=== PATIENT | male | born 1990 | race Hispanic/Latino ===

== ENCOUNTER 2018-09-22 17:21 | Inpatient (IN) | payer MEDICAID ==
[2018-09-22 17:45] VITALS: BMI 33.4
--- NOTE | 2018-09-22 18:20 | C.PDOC ---
History Of Present Illness 28 y/o male presents to the ER requesting detox from heroin. Patient states that his last use was yesterday. Patient reports he has not tried detox for the past few years. Denies having suicidal ideation, homicidal ideation, and active physical complaints. Of note, patient is prescreened. Time Seen by Provider: 09/22/18 17:37 Chief Complaint (Nursing): Substance Abuse History Per: Patient History/Exam Limitations: no limitations Past Medical History Reviewed: Historical Data, Nursing Documentation, Vital Signs Vital Signs: Last Vital Signs Temp 98.3 F 09/22/18 17:44 Pulse 94 H 09/22/18 17:44 Resp 18 09/22/18 17:44 BP 128/87 09/22/18 17:44 Pulse Ox 97 09/22/18 17:44 - Medical History PMH: Anxiety, Asthma Denies: Bipolar Disorder, Depression, Diabetes, Hepatitis, HIV, HTN, Paranoia, Post Traumatic Stress Disorder, Chronic Kidney Disease, Schizophrenia, Seizures, Sexually Transmitted Disease Surgical History: Appendectomy - [facility] Procedures APPLICATION OF SPLINT (04/05/06) IMMOBILIZ/WOUND ATTN NEC (03/25/13) ING HERNIA REP-GRAFT NOS (04/06/07) INJECT/INFUSE ELECTROLYT (02/28/15) INJECT/INFUSE NEC (02/28/15) NEBULIZER THERAPY (12/31/06) OTHER APPENDECTOMY (08/04/05) PSYCHIA INTERV/EVAL NEC (09/28/13) Family History: States: No Known Family Hx - Social History Hx Tobacco Use: Yes Hx Alcohol Use: Yes Hx Substance Use: Yes - Immunization History Hx Tetanus Toxoid Vaccination: No Hx Influenza Vaccination: No Hx Pneumococcal Vaccination: No Review Of Systems Constitutional: Negative for: Fever, Chills Psych: Negative for: Suicidal ideation Physical Exam - Physical Exam Appears: No Acute Distress Skin: Normal Color, Warm, Dry Head: Atraumatic, Normacephalic Eye(s): bilateral: Normal Inspection Nose: Normal Oral Mucosa: Moist Neck: Supple Chest: Symmetrical Cardiovascular: Rhythm Regular Respiratory: Normal Breath Sounds, No Rales, No Rhonchi, No Wheezing Gastrointestinal/Abdominal: Normal Exam, Soft, No Tenderness, No Guarding, No Rebound Neurological/Psych: Oriented x3, Normal Speech ED Course And Treatment - Laboratory Results Result Diagrams: 09/22/18 18:16 09/22/18 18:16 Lab Interpretation: No Acute Changes (UDS positive for opiates and marijuana) O2 Sat by Pulse Oximetry: 97 (RA) Pulse Ox Interpretation: Normal Progress Note: Patient is medically cleared for detox admission. Medical Decision Making Medical Decision Making: Plan: --Labs --UA Disposition - Disposition Disposition: HOSPITALIZED Disposition Time: 19:50 Condition: STABLE - POA Present On Arrival: None - Clinical Impression Clinical Impression: Opiate dependence - Scribe Statement The provider has reviewed the documentation as recorded by the Heatheribbessie Abbott Provider Attestation: All medical record entries made by the Scribe were at my direction and personally dictated by me. I have reviewed the chart and agree that the record accurately reflects my personal performance of the history, physical exam, medical decision making, and the department course for this patient. I have also personally directed, reviewed, and agree with the discharge instructions and disposition.
[2018-09-22 18:22] LABS: BASO # 0.1 K/uL (0.0-0.2); EOS # 0.2 K/uL (0.0-0.7); EOS % 1.4 % (0.0-4.0); HEMOGLOBIN 16.1 g/dL (12.0-18.0); MEAN CELL VOLUME 89.5 fL (80.0-94.0); MEAN CORPUSCULAR HEMOGLOBIN 30.1 pg (27.0-31.0); MEAN CORPUSCULAR HGB CONC 33.6 g/dL (33.0-37.0); MEAN PLATELET VOLUME 8.8 fL (7.2-11.7); MONO # 0.7 K/uL (0.0-0.8); MONO % 5.2 % (0.0-10.0); NEUT # 9.7 K/uL (1.8-7.0); NEUT % 76.4 % (50.0-75.0); RBC 5.34 Mil/uL (4.40-5.90); RED CELL DISTRIBUTION WIDTH 13.6 % (11.5-14.5); WHITE BLOOD COUNT 12.7 K/uL (4.8-10.8)
[2018-09-22 18:36] LABS: ALB/GLOB RATIO 1.5 (1.0-2.1); ALBUMIN 4.9 g/dL (3.5-5.0); ALT/SGPT 13 U/L (21-72); AST/SGOT 26 U/L (17-59); BLOOD UREA NITROGEN 10 mg/dL (9-20); CALCIUM 10.1 mg/dl (8.6-10.4); GFR NON-AFRICAN AMERICAN > 60
[2018-09-22 19:00] LABS: URINE BILIRUBIN NEGATIVE (NEGATIVE); URINE BLOOD NEGATIVE (NEGATIVE); URINE CLARITY Clear (Clear); URINE COLOR Yellow (YELLOW); URINE GLUCOSE (UA) NORMAL (Normal); URINE LEUKOCYTE ESTERASE NEG Leu/uL (Negative); URINE PROTEIN NEGATIVE (NEGATIVE); URINE UROBILINOGEN NORMAL mg/dL (0.2-1.0)
[2018-09-22 19:14] LABS: BARBITURATES, UR NEGATIVE (NEGATIVE); BENZODIAZEPINES, UR NEGATIVE (NEGATIVE); PHENCYCLIDINE, UR NEGATIVE (NEGATIVE)
[2018-09-22 19:16] LABS: OPIATES, UR POSITIVE (NEGATIVE)
--- NOTE | 2018-09-22 20:11 | PCM.BM ---
<Adan Vanegas - Last Filed: 09/22/18 20:08> Treatment Plan Problems - Problems identified on initial assessmt denial Date Initiated: 09/22/18 Time Initiated: 20:09 Assessment reference: NA Status: Active defensive coping Date Initiated: 09/22/18 Time Initiated: 20:10 Assessment reference: NA Status: Active chronic low self esteem Date Initiated: 09/22/18 Time Initiated: 20:10 Assessment reference: NA Status: Active Treatment assets and liabiliti Patient Assests: adapts well, cooperative, ADL independent Patient Liabilities: substance abuse - Milieu Protocol Maintain good personal hygiene: daily Encourage regular showers, daily Remind patient to perform daily oral care, daily Assist patient to perform ADL's Conduct patient checks and document Observation sheet: Q15 minutes Maintain personal safety: every shift Educate patient to report safety concerns to staff, every shift Monitor environment for contraband/sharps Medication safety: Monitor for expected outcome, potential side effects: every shift, Assess barriers to learning: every shift, Assess readiness for medication education: every shift <Tiffanie Adhikari - Last Filed: 09/24/18 16:03> Family Contact Family involvement: Family/SO is involved Family contact name: mom Family contacted how many times per week?: 3 - Goals for Treatment Patient goals for treatment: Complete detox and apply for short-term rehab. Discharge/Continuing Care - Education Needs Education Needs: Patient Medication, Patient Diagnosis/Disease Process, Patient Coping Skills, Patient Anger Management skills, Patient Placement options, Patient Community resources - Discharge Discharge Criteria: No longer exhibiting s/s of withdrawal, Reduction of target symptoms Discharge to:: Substance Abuse Rehab - Treatment Team Participation Patient/Family/SO Statement: 09/24/18 16:06 " wanna try to go to [facility]". Discussed with Family/SO: No Was Patient/Family/SO present at Treatment Team Meeting: Yes <Kingsley Owens - Last Filed: 09/26/18 14:19> - Diagnosis (1) Opiate dependence Status: Acute Interventions: 09/24/18 14:19 * Assess 7x/week regarding severity of withdrawal * Educate regarding risks, benefits, side effects and alternatives of medications * Use Motivational Interviewing for abstinence * Use CBT for relapse prevention * Medication management for withdrawal symptoms * Encourage medication assisted treatment *
[2018-09-22] MEDS ORDERED: Buprenorphine Hydrochloride 2 mg SL ONE ×3 (21:39→22:40)
[2018-09-23] MEDS: Buprenorphine Hydrochloride 2 mg SL SCH (09:17)
--- NOTE | 2018-09-23 11:57 | PCM.PSYCH ---
Initial Psychiatric Evaluation - Initial Psychiatric Evaluation Type of Admission: Voluntary Legal Status: Capacity Chief Complaint (in patient's own words): "I'm not well, I feel sick" History of Present Illness and Precipitating Events: The pt is seen, chart reviewed and case discussed. He is a 28 y/o male, with 2 children aged 2 and 4, lives with mother on and off, unemployed. He has started to withdraw and COWS was high (>10). He reports using more than 10 bags intranasal and iv. Started 15 years ago. Had 5-yr clean time in the past. One detox in 2011 at [facility] [place]. No rehab. Used suboxone 16 mg in the past but stopped when his dr left his practice. He also admits taking Oxy "as many as he can" Drinks 1 to 1.5 pint of alcohol daily. No seizures but many wdw sxs CIWA increasing Also smokes MJ and 2 ppd tobacco He reports depression, dx'ed with bipolar d/o too. Takes seroquel. Still depressed, anhedonic, pessimistic, not suicidal/homicidal. Medical - he has asthma, hernia surgery, bronchitis history No family psych hx Current Medications: Active Medications Generic Name Dose Route Start Last Admin Trade Name Freq PRN Reason Stop Dose Admin Acetaminophen 650 mg 09/23/18 10:00 09/23/18 09:58 Tylenol 325mg Tab PO 650 mg Q6H PRN Administration Pain, moderate (4-7) Buprenorphine HCl 8 mg 09/23/18 10:00 09/23/18 09:17 Subutex SL 09/28/18 09:59 8 mg DAILY VIMAL Administration Taper Nicotine 1 patch 09/23/18 10:00 09/23/18 09:17 Nicoderm Cq TD 1 patch DAILY VIMAL Administration Quetiapine Fumarate 50 mg 09/22/18 22:00 09/22/18 22:05 Seroquel PO 50 mg HS VIMAL Administration Trazodone HCl 100 mg 09/22/18 21:07 09/22/18 22:05 Desyrel PO 100 mg HS PRN Administration Sleep Past Psychiatric History - Past Psychiatric History Previous Treatment History: Intensive Outpatient Pertinent Medical Hx (Current Medical&Sleep Prob, Allergies): Allergies Allergy/AdvReac Type Severity Reaction Status Date / Time No Known Allergies Allergy Verified 09/22/18 17:43 Quetiapine Fumarate [Seroquel] 50 mg PO DAILY 09/22/18 Review of Systems - Psychiatric Psychiatric: Abnormal Sleep Pattern, Anhedonia, Anxiety, Change in Appetite, Depression, Difficulty Concentrating, Irritability. absent: Hallucinations, Homicidal Ideation, Paranoia, Suicidal Ideation Mental Status Examination - Personal Presentation Personal Presentation: Looks stated age - Affect Affect: Constricted - Motor Activity Motor Activity: Calm - Reliability in Providing Information Reliability in Providing Information: Good - Speech Speech: Organized - Mood Mood: Depressed, Anxious - Formal Thought Process Formal Thought Process: No Impairment - Cognitive Functions Orientation: Person, Place, Situation, Time Sensorium: Alert Attention/Concentration: Attentive Estimate of Intelligence: Average Judgement: Intact, as evidence by: Insight regarding need for hospitalization Memory: Recent intact, as evidence by: Ability to recall events of the day, Remote intact, as evidenced by: Abilit to recall sig. life events - Risk Risk: Withdrawal, Diminished functioning - Strength & Assets Inventory Strength & Assets Inventory: Cooperative - Limitations Limitations: Other DSM 5 DX - DSM 5 DSM 5 Diagnosis: Opioid withdrawal Opioid use d/o - severe Alcohol withdrawal Alcohol use d/o - severe Cannabis use d/o - severe Tobacco use d/o - severe Major depressive d/o - recurrent, severe - Recommended/Plan of Treatment Treatment Recommendations and Plan of Treatment: Taper with subutex and librium Gabapentin for augmentation Remeron and seroquel for depression As needed medications All risks, benefits and alternatives of the meds discussed, and the pt agreed and understood. Attend groups and activities Supportive therapy and psychoeducation [place] for abstinence CBT for relapse prevention Encourage MAT Refer to rehab or IOP, and self-help groups Teach healthy lifestyle methods, i.e. diet, exercise, meditation Smoking cessation with [place] Nicotine patch if needed 34 min Projected ELOS: 4-5 days - Smoking Cessation Smoking Cessation Initiated: Yes
[2018-09-23] MEDS: Multiple Vitamins Tab PO SCH (13:05)
[2018-09-24] MEDS: Buprenorphine Hydrochloride 2 mg SL SCH (09:36)
[2018-09-24] MEDS: Multiple Vitamins Tab PO SCH (09:36)
--- NOTE | 2018-09-24 14:41 | PCM.PYCHPN ---
Psychiatric Progress Note - Psychiatric Progress Note Patient seen today, length of contact: 17 min Patient Chief Complaint: "I'm very very anxious" Problems Identified/Issues Discussed: The pt is seen, chart reviewed, case is discussed with staff. The pt is compliant with medications and reports no side-effects. Symptoms are improving but needs more time to stabilize and to avoid relapse. Anxiety mgt discussed, incl. meds and relaxation skills Pt attends groups and activities. Support given, psycho-education provided. After care discussed. Medication Change: Yes (detox changes daily) Medical Record Reviewed: Yes Mental Status Examination - Cognitive Function Orientation: Person, Place, Situation, Time Memory: Intact Attention: WNL Concentration: Poor Association: WNL Fund of Knowledge: WNL - Mood Mood: Depressed, Anxious - Affect Affect: Constricted - Speech Speech: Appropriate - Formal Thought Process Formal Thought Process: No Impairment - Suicidal Ideation Suicidal Ideation: No - Homicidal Ideation Homicidal Ideation: No Goal/Treatment Plan - Goal/Treatment Plan Need for Continued Stay: Discharge may exacerbated symptoms, Severe functional impairment Progress Toward Problem(s) and Goals/Treatment Plan: Taper with subutex and librium Gabapentin for augmentation Seroquel for insomnia Remeron and seroquel for depression As needed medications All risks, benefits and alternatives of the meds discussed, and the pt agreed and understood. Attend groups and activities Supportive therapy and psychoeducation [place] for abstinence CBT for relapse prevention Encourage MAT Refer to rehab or IOP, and self-help groups Teach healthy lifestyle methods, i.e. diet, exercise, meditation Smoking cessation with [place] Nicotine patch if needed
[2018-09-25] MEDS: Buprenorphine Hydrochloride 2 mg SL SCH (09:44)
[2018-09-25] MEDS: Multiple Vitamins Tab PO SCH (09:44)
--- NOTE | 2018-09-25 23:09 | PCM.PYCHPN ---
Psychiatric Progress Note - Psychiatric Progress Note Patient seen today, length of contact: 15 minutes Patient Chief Complaint: I am feeling little better. Problems Identified/Issues Discussed: Patient seen, chart reviewed, case discussed with the staff. Issues related to illness and treatment were discussed with the patient and staff. Tolerating treatment very well. Reported compliant with treatment with no adverse effects. Patient reported feeling little better as patient has some withdrawal symptoms including anxiety, decreased sleep, body aches and sweating. Mood reported as anxious. Affect appropriate. Aftercare discussed with the patient. Patient denied any delusions, auditory or visual hallucinations, suicidal ideations or homicidal ideations at the time of evaluation. Medical Problems: Asthma Diagnostic Results: Reviewed DSM 5 Symptoms Update: Some improvement with treatment. Medication Change: No Medical Record Reviewed: Yes Mental Status Examination - Cognitive Function Orientation: Person, Place, Situation, Time Memory: Intact Attention: WNL Concentration: WNL Association: WNL Fund of Knowledge: WNL - Mood Mood: Anxious - Affect Affect: Other (Appropriate) - Speech Speech: Appropriate - Formal Thought Process Formal Thought Process: No Impairment Psychotic Thoughts and Behaviors: None - Suicidal Ideation Suicidal Ideation: No - Homicidal Ideation Homicidal Ideation: No Goal/Treatment Plan - Goal/Treatment Plan Need for Continued Stay: Remain at risks for inpatient hospitalization, Discharge may exacerbated symptoms, Severe functional impairment Progress Toward Problem(s) and Goals/Treatment Plan: Patient education. Supportive therapy. CBT for relapse prevention. [place] for abstinence. Continue treatment as before. Patient wants to go to [facility] for follow-up care after discharge from the hospital. Estimated Date of D/C: 09/27/18 - Smoking Cessation Smoking Cessation Initiated: Yes
[2018-09-26] MEDS: Multiple Vitamins Tab PO SCH (09:54)
[2018-09-26] MEDS: Buprenorphine Hydrochloride 2 mg SL SCH (09:54)
--- NOTE | 2018-09-27 08:37 | PCM.PYCHDC ---
Mental Status Examination - Mental Status Examination Orientation: Person Discharge Summary - Discharge Note Consultations:: List each consultation separately and include: 1. Reason for request. 2. Findings. 3. Follow-up Summary of Hospital Course include:: 1. Description of specific treatment plan utilized for patients during their course of treatmen. 2. Summarize the time- course for resolution of acute symptoms and/or regressed behaviors. 3. Describe issues identified and worked on during hospitalization. 4. Describe medication utilized. 5. Describe medical problems identified and treated. 6. Reassessment of suicide risk Summary of Hospital Course: The pt is seen, chart reviewed and case discussed. He is a 28 y/o male, with 2 children aged 2 and 4, lives with mother on and off, unemployed. He has started to withdraw and COWS was high (>10). He reports using more than 10 bags intranasal and iv. Started 15 years ago. Had 5-yr clean time in the past. One detox in 2011 at [facility] [place]. No rehab. Used suboxone 16 mg in the past but stopped when his dr left his practice. He also admits taking Oxy "as many as he can" Drinks 1 to 1.5 pint of alcohol daily. No seizures but many wdw sxs CIWA increasing Also smokes MJ and 2 ppd tobacco He reports depression, dx'ed with bipolar d/o too. Takes seroquel. Still depressed, anhedonic, pessimistic, not suicidal/homicidal. Medical - he has asthma, hernia surgery, bronchitis history No family psych hx He will go to [facility]. - Diagnosis (1) Opiate dependence Current Visit: Yes Status: Acute - Final Diagnosis (DSM 5) Condition upon Discharge: STABLE Disposition: HOME/ ROUTINE Follow-up Treatment Plan: Taper with subutex and librium Gabapentin for augmentation Seroquel for insomnia Remeron and seroquel for depression As needed medications All risks, benefits and alternatives of the meds discussed, and the pt agreed and understood. Attend groups and activities Supportive therapy and psychoeducation [place] for abstinence CBT for relapse prevention Encourage MAT Refer to rehab or IOP, and self-help groups Teach healthy lifestyle methods, i.e. diet, exercise, meditation Smoking cessation with [place] Nicotine patch if needed
[2018-09-27 08:43] VITALS: PULSE 63; RESP 18; O2SAT 98
[2018-09-27] MEDS: Multiple Vitamins Tab PO SCH (09:03)
[2018-09-27] MEDS: Buprenorphine Hydrochloride 2 mg SL SCH (09:03)
[2018-09-27 09:46] VITALS: BP 100/60; TEMP 97.6
== END 2018-09-27 09:15 | disposition home or self-care (01) | DRG 772 ==
LOC: C.ER 17:21 → C.7D 19:50
PROVIDERS: ADMIT Psychiatry & Neurology Psychiatry; ATTEND Psychiatry & Neurology Psychiatry
PROC: HZ42ZZZ Group Counseling for Substance Abuse Treatment, Cognitive-Behavioral (ICD-10-PCS; principal; 2018-09-22)
PROC: HZ2ZZZZ Detoxification Services for Substance Abuse Treatment (ICD-10-PCS; 2018-09-22)
PROC: HZ52ZZZ Individual Psychotherapy for Substance Abuse Treatment, Cognitive-Behavioral (ICD-10-PCS; 2018-09-22)
PROC: HZ59ZZZ Individual Psychotherapy for Substance Abuse Treatment, Supportive (ICD-10-PCS; 2018-09-22)
PROC: HZ56ZZZ Individual Psychotherapy for Substance Abuse Treatment, Psychoeducation (ICD-10-PCS; 2018-09-22)
PROC: HZ46ZZZ Group Counseling for Substance Abuse Treatment, Psychoeducation (ICD-10-PCS; 2018-09-22)
PROC: GZHZZZZ Group Psychotherapy (ICD-10-PCS; 2018-09-22)
PROC: GZ58ZZZ Individual Psychotherapy, Cognitive-Behavioral (ICD-10-PCS; 2018-09-22)
PROC: GZ56ZZZ Individual Psychotherapy, Supportive (ICD-10-PCS; 2018-09-22)
DX: F11.23 Opioid dependence with withdrawal (principal); F31.9 Bipolar disorder, unspecified; F10.230 Alcohol dependence with withdrawal, uncomplicated; F12.20 Cannabis dependence, uncomplicated; Y90.0 Blood alcohol level of less than 20 mg/100 ml; F17.210 Nicotine dependence, cigarettes, uncomplicated; F41.9 Anxiety disorder, unspecified; G47.00 Insomnia, unspecified; J45.909 Unspecified asthma, uncomplicated